=== PATIENT | male | born 1975 | race Asian ===

== ENCOUNTER → 2016-10-17 | Outpatient (CLI) | payer BC ==
[~2016-10-17] MED LIST: LEVO75TA PO; LEVO88TA PO; OPTIRAY 320 IV PRN
[2016-10-17 18:47] LABS: BASO % 0.3 %; BASO ABS # 0.02 K/uL (0-0.2); COMPLETE YES; EOS % 1.1 %; HEMATOCRIT 42.1 % (42-52); IG% 0.2 %; LYMPH % 11.7 %; LYMPH ABS # 0.75 K/uL (1.2-3.4); MEAN CELL VOLUME 89.4 fL (80-100); MEAN CORPUSCULAR HEMOGLOBIN 30.8 pg (25-34); MEAN CORPUSCULAR HGB CONC 34.4 g/dl (32-36); MEAN PLATELET VOLUME 9.6 fL (7.4-10.4); MONO % 3.9 %; NEUT % 82.8 %; PLATELET COUNT 191 K/uL (130-400); RED BLOOD COUNT 4.71 M/uL (4.7-6.1)
[2016-10-17 19:08] LABS: ALKALINE PHOSPHATASE 80 U/L (45-117); ALT/SGPT 24 U/L (12-78); AST/SGOT 20 U/L (15-37); BLOOD UREA NITROGEN 16 mg/dl (7-18); BUN/CREATININE RATIO 16.4 (10-20); CALCIUM 8.9 mg/dl (8.5-10.1); CARBON DIOXIDE 30 mmol/L (21-32); CHLORIDE 104 mmol/L (98-107); CREATININE 0.95 mg/dl (0.60-1.40); GLUCOSE 104 mg/dl (70-99); POTASSIUM 4.2 mmol/L (3.5-5.1); SODIUM 140 mmol/L (136-145)
[2016-10-17 19:10] LABS: ALB/GLOB RATIO 0.9 (0.9-2)
[2016-10-17 19:18] LABS: THYROID STIMULATING HORMONE 0.424 uIu/ml (0.300-4.500)
--- NOTE | 2016-10-17 19:31 | DIAGNOSTIC IMAGING REPORT ---
CHEST CTA for PULMONARY ARTERIES CT DOSE: 289.52 mGycm HISTORY: Cough HEMOPTYSIS TECHNIQUE: Multiaxial CT images of the chest were performed following the intravenous administration of contrast to evaluate the pulmonary arteries. Maximal intensity projection images were also obtained. COMPARISON STUDY: 08/17/2012 FINDINGS: Thoracic aorta is normal in course and caliber. Pulmonary arterial vasculature enhances appropriately. No major filling defect is appreciated. There are findings of bronchiectatic and infiltrative changes involving the left lower lobe. Mucous plugging is present. This is seen to a lesser extent involving the right lower lobe. These findings are moderately progressive compared to the prior exam. The mid to upper lungs are generally clear. Subtle reticular nodular infiltrative process superior segment right lower lobe is present. IMPRESSION: 1. Study is negative for pulmonary embolus. 2. Moderately progressive infiltrative and bronchiectatic changes involving the left and to lesser extent right lower lobe. 3. Interval development of reticular nodular infiltrative changes superior segment right lower lobe. Electronically signed by: Tim Diaz M.D. 10/17/2016 7:29 PM Dictated Date/Time: 10/17/2016 7:24 PM
== END | disposition home or self-care (01) ==
LOC: C.LAB 18:03
PROVIDERS: ATTEND Family Medicine
DX: R04.2 Hemoptysis (principal); R91.8 Other nonspecific abnormal finding of lung field; J47.9 Bronchiectasis, uncomplicated

== ENCOUNTER → 2016-10-21 | Outpatient (CLI) | payer BC ==
[~2016-10-21] MED LIST changes: -OPTIRAY 320 IV PRN
[2016-10-21 16:48] LABS: BASO % 0.6 %; BASO ABS # 0.02 K/uL (0-0.2); COMPLETE YES; EOS % 3.5 %; HEMATOCRIT 42.8 % (42-52); LYMPH % 34.2 %; LYMPH ABS # 1.07 K/uL (1.2-3.4); MEAN CELL VOLUME 87.9 fL (80-100); MEAN CORPUSCULAR HEMOGLOBIN 29.8 pg (25-34); MEAN CORPUSCULAR HGB CONC 33.9 g/dl (32-36); MEAN PLATELET VOLUME 9.6 fL (7.4-10.4); MONO % 5.8 %; NEUT % 55.9 %; PLATELET COUNT 207 K/uL (130-400); RED BLOOD COUNT 4.87 M/uL (4.7-6.1); WHITE BLOOD COUNT 3.13 K/uL (4.8-10.8)
[2016-10-21 16:57] LABS: PARTIAL THROMBOPLASTIN RATIO 1.2; PROTHROMBIN TIME (PATIENT) 10.8 SECONDS (9.0-12.0)
[2016-10-21 17:28] LABS: ALT/SGPT 26 U/L (12-78); BLOOD UREA NITROGEN 14 mg/dl (7-18); BUN/CREATININE RATIO 15.3 (10-20); CALCIUM 8.9 mg/dl (8.5-10.1); CARBON DIOXIDE 31 mmol/L (21-32); CHLORIDE 105 mmol/L (98-107); GLUCOSE 105 mg/dl (70-99); POTASSIUM 3.7 mmol/L (3.5-5.1); SODIUM 141 mmol/L (136-145)
[2016-10-21 17:40] LABS: ALB/GLOB RATIO 0.9 (0.9-2); ALKALINE PHOSPHATASE 85 U/L (45-117); AST/SGOT 22 U/L (15-37); IMMUNOGLOBULN M 79.3 mg/dL (40-230)
[2016-11-07 15:11] LABS: IMMUNOGLOBULIN E TC 24620E 32 KU/L (<115); PNEUMOCOCCAL IGG TYPE 1 0.3 mcg/mL; PNEUMOCOCCAL IGG TYPE 12(12F <0.3 mcg/mL; PNEUMOCOCCAL IGG TYPE 14 <0.3 mcg/mL; PNEUMOCOCCAL IGG TYPE 19(19F 0.8 mcg/mL; PNEUMOCOCCAL IGG TYPE 23(23F 1.7 mcg/mL; PNEUMOCOCCAL IGG TYPE 26 (6B <0.3 mcg/mL; PNEUMOCOCCAL IGG TYPE 3 <0.3 mcg/mL; PNEUMOCOCCAL IGG TYPE 4 <0.3 mcg/mL; PNEUMOCOCCAL IGG TYPE 5 <0.3 mcg/mL; PNEUMOCOCCAL IGG TYPE 51 (7F 1.6 mcg/mL; PNEUMOCOCCAL IGG TYPE 56(18C <0.3 mcg/mL; PNEUMOCOCCAL IGG TYPE 68 (9V <0.3 mcg/mL; PNEUMOCOCCAL IGG TYPE 8 1.2 mcg/mL; PNEUMOCOCCAL IGG TYPE 9 (9N) 0.6 mcg/mL; QUANTIFERON NIL 0.08 IU/ML
== END | disposition home or self-care (01) ==
LOC: C.LAB 15:51
PROVIDERS: ATTEND Internal Medicine Pulmonary Disease
DX: J47.9 Bronchiectasis, uncomplicated (principal); R04.2 Hemoptysis

== ENCOUNTER 2016-11-03 08:18 | Day surgery (SDC) | payer BC ==
[2016-11-03] VITALS (15 sets, daily range): BP systolic 92–107; BP diastolic 56–75; PULSE 48–68; TEMP 36.3–36.8; O2SAT 96–100; Ht 165.1 cm; Wt 59.0 kg
[~2016-11-03] VITALS: Ht 165.1 cm; Wt 59.0 kg
[2016-11-03] MEDS ORDERED: LIDOCAINE HCL 2% LOCAL 50ML VIAL INFIL ONE (08:19)
[2016-11-03] MEDS ORDERED: LEVALBUTEROL 1.25MG/3ML NEB INH ONE (08:19)
[2016-11-03] MEDS ORDERED: FENTANYL CITRATE INJ 50 MCG/1 ML 2 ML VIAL IV ONE ×2 (08:19→11:45)
[2016-11-03] MEDS ORDERED: MIDAZOLAM HCL 5 MG/ML 1 ML VIAL IV ONE ×2 (08:19→11:45)
[2016-11-03] MEDS ORDERED: LIDOCAINE 4% INH SOLN 4 ML BTL ONE (08:19)
[2016-11-03] MEDS ORDERED: LEVO75TA PO (09:24)
[2016-11-03] MEDS ORDERED: LEVO88TA PO (09:24)
--- NOTE | 2016-11-03 09:52 | History & Physical Bridge Note ---
H&P Re-Evaluation Bridge Note: I have examined the patient, reviewed the History & Physical and in the interval since the performance of the History & Physical I have noted the following changes of clinical significance: No changes noted
--- NOTE | 2016-11-03 09:52 | Procedure Note ---
Pre-Mod Sedation Assessment General Date of Moderate Sedation: Nov 03, 2016. Vital Signs: Vital Signs Past 12 Hours Date Time Temp Pulse Resp B/P Pulse Ox O2 Delivery O2 Flow Rate FiO2 11/03/16 09:15 36.4 63 18 105/71 96 Room Air Pre-Sedation Airway Assessment Oral Cavity: WNL Short Thick Neck: No Hx of Sleep Apnea: No Smoking Status: Never Smoker Mallampati Classification: Class I ASA Classification: Class I Procedure Planning Contraindications-for Mod Sed: None Yes Notes The planned sedation has been discussed with the patient and consent obtained. I have identified the patient, determined the appropriateness of sedation and have assessed the patient immediately prior to the procedure. All medicine(s) and interventions are by my order.
[2016-11-03] MEDS ORDERED: NURSING VERBAL MED ORDER ONE (10:45)
[2016-11-03] MEDS ORDERED: SODIUM CHLORIDE 0.9% 1000ML 1,000 ML IV SCH (11:45)
--- NOTE | 2016-11-03 12:42 | Discharge Instructions ---
Discharge Instructions Date of Service Nov 03, 2016. Admission Reason for Admission: Hemoptysis, Abnormal Ct Discharge Discharge Diagnosis / Problem: Hemoptysis Discharge Goals Goal(s): Diagnostic testing Activity Recommendations Activity Limitations: resume your previous activity Lifting Limitations: none . Instructions / Follow-Up Instructions / Follow-Up ACTIVITY RECOMMENDATIONS: * Rest today, resume normal activity tomorrow. * Do not drive today. SPECIAL CARE INSTRUCTIONS: * Call your physician if you experience any chest or shoulder pain, fever, coughing, spitting up blood (more than 2 teaspoons) or excessive shortness of breath. * Remove dressing from IV site (where needle was placed into the vein) after 2 hours. Apply a warm, moist compress to site if irritation occurs. Call physician if site becomes red or painful to touch. * You may eat 4 hours after the completion of your procedure * Resume all usual medications as previously directed FOLLOW UP VISIT: * Keep any scheduled doctor appointments. Current Hospital Diet Patient's current hospital diet: Discharge Diet Recommended Diet: Regular Diet Pending Studies Studies pending at discharge: yes List of pending studies: Bronchoscopy washings Medical Emergencies . Who to Call and When: Medical Emergencies: If at any time you feel your situation is an emergency, please call 911 immediately. . Non-Emergent Contact Non-Emergency issues call your: Primary Care Provider . . "Provider Documentation" section prepared by Doyle Quintanilla PA-C. VTE Core Measure Inpt VTE Proph given/why not?: Treatment not indicated (Same day procedure. )
--- NOTE | 2016-11-03 14:29 | OPERATIVE REPORT ---
DATE OF OPERATION: 11/03/2016 PROCEDURE: Fiberoptic bronchoscopy and bronchoalveolar lavage. INDICATIONS: Chronic bronchiectasis with mucoid impaction/hemoptysis. ANESTHESIA PREOPERATIVELY: None. ANESTHESIA DURING PROCEDURE: 4 mg IV Versed, 50 mcg IV fentanyl, 20 mL 2% Xylocaine spray above and below the cords, 4% viscous Xylocaine intranasally. PROCEDURE NOTE: Fiberoptic bronchoscope was inserted into the right naris with minimal difficulty and passed to the level of the true vocal cords. The cords appeared to approximate normally with phonation without evidence for lesions or paralysis. The scope was then introduced in the trachea and right and left tracheobronchial tree. The trachea was within normal limits. The wilian was sharp. The right main stem bronchus was found to be free of endobronchial lesions. The right upper lobe, the apical posterior and anterior segments, bronchus intermedius, right middle lobe and the medial and lateral segments and all basilar segments of right lower lobe were found to be free of endobronchial lesions. Mucus pitting was prominently displayed throughout the right tracheobronchial tree and a moderate amount of mucopurulent secretion was lavaged from each basilar segment of the right lower lobe with mucoid impaction noted. The left tracheobronchial tree was then explored and no endobronchial lesion was seen. Left upper lobe, the apical-posterior and anterior segments, lingular subdivision with the superior and inferior segments were free of endobronchial lesions. However the left lower lobe with all basilar segments showed copious mucopurulent secretion with impaction of virtually every segmental bronchus and subsegmental bronchus. These areas were copiously lavaged with Normosol and the aspirate sent for appropriate studies. A moderate degree of inflammatory mucosal change was seen with friability, but no active bleeding. The segmental bronchi appeared to be patulous and dilated, consistent with the diagnosis of localized bronchiectasis. No biopsies or brushings were obtained. The procedure was terminated. The patient was given a nebulizer treatment with Xopenex 1.25 mg, then transferred to the medical treatment unit hemodynamically stable with no signs of respiratory compromise. We will await microbiological and cytologic examination of the bronchial washings. I attest to the content of the Intraoperative Record and any orders documented therein. Any exceptio ns are noted below.
[2016-11-07 15:33] LABS: ASPERGILLUS FLAVUS Negative (Negative); ASPERGILLUS FUMIGATUS Negative (Negative); ASPERGILLUS NIGER Negative (Negative); IMMUNOGLOBULIN E TC 24620E 28 KU/L (<115)
[2016-11-23 09:03] LABS: HERPES SIMPLEX CULT SOURCE OTHER-LEFT LOWER LOB; HERPES SIMPLEX VIRUS CULT NOT ISOLATED (NOT ISOLATED)
== END 2016-11-03 13:25 | disposition home or self-care (01) ==
LOC: C.ACU 08:18
PROVIDERS: ATTEND Internal Medicine Pulmonary Disease
DX: J47.9 Bronchiectasis, uncomplicated (principal); J39.8 Other specified diseases of upper respiratory tract; E06.3 Autoimmune thyroiditis; Z88.0 Allergy status to penicillin; Z80.49 Family history of malignant neoplasm of other genital organs

== ENCOUNTER → 2016-12-08 | Outpatient (CLI) | payer BC ==
--- NOTE | 2016-12-08 13:10 | DIAGNOSTIC IMAGING REPORT ---
CT SCAN OF THE PARANASAL SINUSES CLINICAL HISTORY: Acute sinusitis. COMPARISON STUDY: No priors. TECHNIQUE: High-resolution CT scan of the paranasal sinuses is performed. Images are reviewed in the axial, sagittal, and coronal planes. IV contrast was not administered for this examination. CT DOSE: 543.10 mGy.cm FINDINGS: Maxillary antra: Trace dependent mucosal thickening is seen bilaterally. Anterior ethmoid sinuses: Trace mucosal thickening is seen on the right. Clear on the left. Posterior ethmoid sinuses: Trace mucosal thickening is seen on the right. Clear on the left. Sphenoid sinuses: Trace mucosal thickening is seen on the right. Clear on the left. Frontal sinuses: Trace mucosal thickening is seen bilaterally. Ostiomeatal complexes: Minimally narrowed by mucosal thickening but patent bilaterally. A large Madison cell is noted on the right. Frontoethmoidal and sphenoethmoidal recesses: Patent bilaterally. Carotid arteries: The carotid arteries are covered and there are bilateral septal attachments. Ethmoid roofs: The ethmoid roofs are symmetric. Nasal turbinates: There is denise bullosa of the left middle nasal turbinate. Nasal septum: There is mild left lower deviation of the bony nasal septum with a small spur. Optic nerves: Covered. Orbits: The bony orbits are intact. Orbital contents are normal in appearance. Calvarium: The imaged calvarium is normal in appearance Mastoid air cells: Well pneumatized. Brain parenchyma: Partially visualized brain parenchyma is within normal limits. IMPRESSION: Mild paranasal sinus disease as above. There is no CT evidence of acute sinusitis. See discussion. Electronically signed by: Enrico Herrera M.D. 12/08/2016 1:08 PM Dictated Date/Time: 12/08/2016 1:05 PM
== END | disposition home or self-care (01) ==
LOC: C.CTS 12:44
PROVIDERS: ATTEND Internal Medicine Pulmonary Disease
DX: J01.90 Acute sinusitis, unspecified (principal)

== ENCOUNTER → 2017-02-23 | Outpatient (CLI) | payer BC ==
--- NOTE | 2017-02-23 16:00 | DIAGNOSTIC IMAGING REPORT ---
CHEST 2 VIEWS ROUTINE CLINICAL HISTORY: R91.[address] scan, [id number] COMPARISON STUDY: 11/22/2014. CT 10/17/2016 FINDINGS: Unchanging bronchiectatic changes medial aspect left base. Lungs otherwise are clear. Diaphragms are smooth. IMPRESSION: Chronic bronchiectatic changes medial left base. No acute or interval process. The above report was generated using voice recognition software. It may contain grammatical, syntax or spelling errors. Electronically signed by: Tim Diaz M.D. 02/23/2017 3:59 PM Dictated Date/Time: 02/23/2017 3:57 PM
== END | disposition home or self-care (01) ==
LOC: C.RAD1850 15:19
PROVIDERS: ATTEND Internal Medicine Pulmonary Disease
DX: R91.8 Other nonspecific abnormal finding of lung field (principal)

== ENCOUNTER 2017-03-29 07:49 | Day surgery (SDC) | payer BC ==
[2017-03-20 09:39] LABS: BASO % 0.4 %; BASO ABS # 0.02 K/uL (0-0.2); COMPLETE YES; EOS % 2.2 %; HEMATOCRIT 43.2 % (42-52); LYMPH ABS # 1.18 K/uL (1.2-3.4); MEAN CELL VOLUME 90.4 fL (80-100); MEAN CORPUSCULAR HEMOGLOBIN 30.1 pg (25-34); MEAN CORPUSCULAR HGB CONC 33.3 g/dl (32-36); MEAN PLATELET VOLUME 9.6 fL (7.4-10.4); MONO % 6.1 %; NEUT % 67.3 %; PLATELET COUNT 188 K/uL (130-400); RED BLOOD COUNT 4.78 M/uL (4.7-6.1); WHITE BLOOD COUNT 4.92 K/uL (4.8-10.8)
[2017-03-20 09:47] LABS: PARTIAL THROMBOPLASTIN RATIO 1.2; PROTHROMBIN TIME (PATIENT) 10.7 SECONDS (9.0-12.0)
[2017-03-20 09:56] LABS: ALT/SGPT 40 U/L (12-78); AST/SGOT 26 U/L (15-37); BLOOD UREA NITROGEN 14 mg/dl (7-18); BUN/CREATININE RATIO 17.5 (10-20); CALCIUM 8.6 mg/dl (8.5-10.1); CARBON DIOXIDE 29 mmol/L (21-32); CHLORIDE 109 mmol/L (98-107); CREATININE 0.78 mg/dl (0.60-1.40); GLUCOSE 89 mg/dl (70-99); POTASSIUM 4.3 mmol/L (3.5-5.1); SODIUM 141 mmol/L (136-145)
[2017-03-20 10:07] LABS: ALKALINE PHOSPHATASE 86 U/L (45-117); THYROID STIMULATING HORMONE 0.054 uIu/ml (0.300-4.500)
[2017-03-29] VITALS (19 sets, daily range): BP systolic 88–107; BP diastolic 56–69; PULSE 49–61; TEMP 36.3–36.5; O2SAT 94–100; Ht 165.1 cm; Wt 59.0 kg
[~2017-03-29] VITALS: Ht 165.1 cm; Wt 59.0 kg
[2017-03-29] MEDS ORDERED: LIDOCAINE HCL 2% LOCAL 50ML VIAL INFIL ONE (07:50)
[2017-03-29] MEDS ORDERED: MIDAZOLAM HCL 5 MG/ML 1 ML VIAL IV ONE ×2 (07:50→09:45)
[2017-03-29] MEDS ORDERED: FENTANYL CITRATE 100 MCG 2 ML CARP IV ONE (07:50)
--- NOTE | 2017-03-29 08:24 | History and Physical ---
History & Physical Date Mar 29, 2017. Chief Complaint Chronic bronchiectasis with acute flare History of Present Illness The patient is a 41 year old male with complaints of chronic bronchiectasis with acute flare: 1. Bronchiectasis: At this time the patient does not signs of acute infection will continue to monitor him clinically. I do suggest we repeat bronchoscopy but perform transbronchial biopsies for more invasive evaluation of his possible mycosis. The patient has agreed to this and we will initiate set up. 2. 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 Moving forward with bronchoscopy and transbronchial biopsies might help us truly define invasive versus noninvasive Aspergillus colonization versus infection. Radiology Chest x-ray obtained 02/23/2017: Chronic bronchiectatic changes at the medial left base CT thorax 10/17/2016 compared to 08/17/2012 no significant changes O Left greater than right with basilar bronchiectasis some cylindrical O Right upper lobe posterior subsegment bronchiectasis with tree-in-bud appearance O Significant mediastinal lymphadenopathy in the 4R and 7 kamran station Bronchoscopy with BAL 11/03/2016: BAL performed left lower lobe No malignant cells noted Aspergillus fumigatus Syncephalastrum Species Penicillium Species Testing QuantiFERON gold negative Aspergillus Flavus had a body: Negative Aspergillus from glottis antibody negative Aspergillus [place] antibody negative Additional History Hepatic Disease: No Endocrine Disorder: No Kidney Disease: No Hypertension: No Heart Disease: No Bleeding Tendencies: No Infectious Diseases: Yes (ABPA) Allergies Coded Allergies: Shellfish (Verified Allergy, Severe, rash;hives;swelling, 03/29/17) POLLEN (Verified Adverse Reaction, Severe, itchy eys, 03/29/17) Uncoded Allergies: PENICILLIN (Allergy, Severe, hives;itchy, 11/03/16) Home Medications Scheduled Levothyroxine Sodium (Synthroid), 75 MCG PO Q2D Levothyroxine Sodium (Synthroid), 88 MCG PO Q2D Physical Examination Skin: warm/dry, no rash Eyes: normal inspection, EOMI, sclerae normal ENT: normal ENT inspection, pharynx normal Head: normocephalic, atraumatic Neck: supple, no adenopathy, trachea midline Respiratory/Chest: lungs clear, normal breath sounds, no respiratory distress Cardiovascular: regular rate, rhythm, no edema, no murmur Abdomen / GI: normal bowel sounds, non tender Back: normal inspection Extremities: normal inspection, normal range of motion Neurologic/Psych: no motor/sensory deficits, alert, normal reflexes, oriented x 3 ASA Classification: ASA Class II Plan of Treatment Bronchoscopy with bronchial alveolar lavage and transbronchial biopsies
--- NOTE | 2017-03-29 08:52 | Procedure Note ---
Pre-Mod Sedation Assessment General Date of Moderate Sedation: Mar 29, 2017. Vital Signs: Vital Signs Past 12 Hours Date Time Temp Pulse Resp B/P (MAP) Pulse Ox O2 Delivery O2 Flow Rate FiO2 03/29/17 08:46 36.5 55 18 88/56 98 Room Air 03/29/17 08:12 36.5 55 18 88/56 (67) 98 Room Air Review Cardiovascular: regular rate, rhythm, no edema, no gallop, no JVD, no murmur Abdomen: normal bowel sounds, non tender, soft, no organomegaly, no pulsatile mass Lungs: lungs clear, normal breath sounds, no respiratory distress Airway Class: II Pre-Sedation Airway Assessment Oral Cavity: WNL Able to Visualize Vocal Cords: Yes Short Thick Neck: No Hx of Sleep Apnea: No Smoking Status: Never Smoker Mallampati Classification: Class II ASA Classification: Class II Procedure Planning Contraindications-for Mod Sed: None Yes Notes The planned sedation has been discussed with the patient and consent obtained. I have identified the patient, determined the appropriateness of sedation and have assessed the patient immediately prior to the procedure. All medicine(s) and interventions are by my order.
[2017-03-29] MEDS ORDERED: NURSING VERBAL MED ORDER ONE ×2 (09:00→09:45)
[2017-03-29] MEDS ORDERED: DEXTROSE 5% 1000ML 1,000 ML IV SCH (09:15)
--- NOTE | 2017-03-29 09:41 | Procedure Note ---
Post-Moderate Sedation Plan General Date of Moderate Sedation Mar 29, 2017. Vital Signs: Vital Signs Past 12 Hours Date Time Temp Pulse Resp B/P (MAP) Pulse Ox O2 Delivery O2 Flow Rate FiO2 03/29/17 08:50 51 18 107/69 94 Room Air 03/29/17 08:46 36.5 55 18 88/56 98 Room Air 03/29/17 08:12 36.5 55 18 88/56 (67) 98 Room Air Review - Discharge Plan Post Moderate Sedation Plan: On clinical assessment, the patient appears to have tolerated the conscious sedation without complications. Patient is recovering as anticipated. Patient will continue to be monitored by nursing and may be discharged when conscious sedation discharge criteria are met.
--- NOTE | 2017-03-29 09:41 | Bronchoscopy Procedure Note ---
Bronchoscopy Procedure Note Procedure: Bronchoscopy, conscious sedation, transbronchial biopsy, fluoroscopy Consent: Obtained through the patient placed into the chart Pre-Procedural diagnosis: Chronic bronchiectasis Post-procedural diagnosis: Chronic bronchitis Start time: 909 End time: 928 Total time: 19 minutes Analgesia: 2% liquid lidocaine: Via nebulizer 4% gel lidocaine: Via right naris 2% liquid lidocaine: Via bronchoscopy Sedation: Versed IV: 3 mg Fentanyl IV: 50 g Procedure: The [employer] video bronchoscope was used for this procedure and passed down through the right naris Right naris/posterior naris/posterior oropharynx: Anatomically within normal limits Glottis: Anatomically within normal limits Vocal cords: Proper abduction and abduction, anatomically within normal limits Subglottis/trachea/Lexy: Anatomically within normal limits, diffuse mucous plugs easily cleared Right bronchial tree: Right mainstem bronchus: Anatomically within normal limits Right upper lobe: Anatomically within normal limits Bronchus intermedius: Anatomically within normal limits Right middle lobe: Anatomically within normal limits Right lower lobe: Anatomically within normal limits Findings: Diffuse mucous plugs throughout the right bronchial tree easily cleared Left bronchial tree: Left mainstem bronchus: Anatomically within normal limits Left upper lobe: Anatomically within normal limits Lingula: Anatomically within normal limits Left lower lobe: Anatomically within normal limits Findings: Diffuse mucous plugs throughout the left bronchial tree easily cleared greatest in the left lower lobe gravity dependent regions Bronchial alveolar lavage: Left lower lobe EBL: None Tbbx: 7 performed of the left lower lobe Complications: None Follow-up: In the [facility]
[2017-03-29] MEDS ORDERED: FENTANYL CITRATE INJ 50 MCG/1 ML 2 ML VIAL IV ONE ×2 (09:45)
--- NOTE | 2017-03-29 11:36 | Discharge Instructions ---
Discharge Instructions Date of Service Mar 29, 2017. Admission Reason for Admission: Abn Ct Scan E03.9, J47.9, R04.2, B44.81, R97.8 Discharge Discharge Diagnosis / Problem: Chronic bronchiectasis Discharge Goals Goal(s): Improve function, Diagnostic testing Activity Recommendations Activity Limitations: resume your previous activity . Instructions / Follow-Up Instructions / Follow-Up Follow-up in the [facility] at next scheduled visit. Current Hospital Diet Patient's current hospital diet: Discharge Diet Recommended Diet: Regular Diet Procedures Procedures Performed: Bronchoscopy, conscious sedation, bronchial lavage of the left lower lobe and transbronchial biopsies of the left lower lobe. Pending Studies Studies pending at discharge: no Medical Emergencies . Who to Call and When: Medical Emergencies: If at any time you feel your situation is an emergency, please call 911 immediately. . Non-Emergent Contact Non-Emergency issues call your: [employer] . . "Provider Documentation" section prepared by Jose Peters. . VTE Core Measure Inpt VTE Proph given/why not?: Treatment not indicated
[2017-04-22 13:15] LABS: HERPES SIMPLEX CULT SOURCE RESPIRATORY-LLL BAL; HERPES SIMPLEX VIRUS CULT NOT ISOLATED (NOT ISOLATED)
== END 2017-03-29 12:20 | disposition home or self-care (01) ==
LOC: C.ACU 07:49
PROVIDERS: ATTEND Internal Medicine Critical Care Medicine
DX: J42 Unspecified chronic bronchitis (principal); Z79.899 Other long term (current) drug therapy

== ENCOUNTER → 2017-06-19 | Outpatient (CLI) | payer BC ==
[2017-06-19 09:55] LABS: THYROID STIMULATING HORMONE 0.368 uIu/ml (0.300-4.500)
== END | disposition home or self-care (01) ==
LOC: C.LAB 07:42
PROVIDERS: ATTEND Internal Medicine Endocrinology, Diabetes & Metabolism
DX: E06.3 Autoimmune thyroiditis (principal)

== ENCOUNTER → 2017-08-26 | Outpatient (CLI) | payer BC ==
[2017-08-26 10:04] LABS: ALBUMIN 3.7 gm/dl (3.4-5.0); ALT/SGPT 27 U/L (12-78); BLOOD UREA NITROGEN 14 mg/dl (7-18); CALCIUM 8.8 mg/dl (8.5-10.1); CARBON DIOXIDE 28 mmol/L (21-32); CHOLESTEROL 155 mg/dl (0-200); CREATININE 0.82 mg/dl (0.60-1.40); GLUCOSE 79 mg/dl (70-99); POTASSIUM 3.7 mmol/L (3.5-5.1); SODIUM 139 mmol/L (136-145)
[2017-08-26 10:07] LABS: ALKALINE PHOSPHATASE 68 U/L (45-117); AST/SGOT 17 U/L (15-37); LDL CHOLESTEROL CALCULATED 90 mg/dl; TOTAL PROTEIN 7.9 gm/dl (6.4-8.2)
== END | disposition home or self-care (01) ==
LOC: C.LAB 08:48
PROVIDERS: ATTEND Family Medicine
DX: Z13.220 Encounter for screening for lipoid disorders (principal); Z13.228 Encounter for screening for other metabolic disorders

== ENCOUNTER → 2017-11-08 | Outpatient (CLI) | payer BC ==
--- NOTE | 2017-11-08 14:32 | DIAGNOSTIC IMAGING REPORT ---
CHEST 2 VIEWS ROUTINE HISTORY: 42 years-old Male BRONCHIECTASIS bronchiectasis. COMPARISON: Chest radiographs 02/23/2017, chest radiograph 10/17/2016 TECHNIQUE: PA and lateral views of the chest FINDINGS: Cardiomediastinal and hilar silhouettes are within normal limits. Bibasilar bronchiectasis is redemonstrated, best seen to level of the medial right lung base. Bronchiectasis with reticular nodular opacities are seen within the right midlung. No pneumothorax, pleural effusion or lobar airspace consolidation. Bones of the chest appear grossly intact. IMPRESSION: Bibasilar bronchiectasis with bronchiectasis and reticular nodular opacities of the right midlung, possibly reflecting associated infectious bronchiolitis as seen on comparison chest CT. The above report was generated using voice recognition software. It may contain grammatical, syntax or spelling errors. Electronically signed by: Waylon Graham M.D. 11/08/2017 2:30 PM Dictated Date/Time: 11/08/2017 2:25 PM
== END | disposition home or self-care (01) ==
LOC: C.RAD1850 14:17
PROVIDERS: ATTEND Internal Medicine Pulmonary Disease
DX: J47.9 Bronchiectasis, uncomplicated (principal)

== ENCOUNTER → 2018-02-24 | Outpatient (CLI) | payer BC | END | disposition home or self-care (01) | LOC: C.LAB 09:50 | PROVIDERS: ATTEND Internal Medicine Endocrinology, Diabetes & Metabolism | DX: E03.9 Hypothyroidism, unspecified (principal) ==

== ENCOUNTER → 2018-03-06 | Outpatient (CLI) | payer BC ==
--- NOTE | 2018-03-06 16:47 | DIAGNOSTIC IMAGING REPORT ---
SOFT TISS HEAD/NECK-THYROID HISTORY: Thyroiditis HYPOTHYROIDISM,SUNITA'S COMPARISON: 06/17/2015 FINDINGS: Right lobe: Maximum linear dimension 6.2 cm. Diffuse heterogeneity with increased vascular flow. Left lobe: Diffuse heterogeneity with maximum linear dimension of 4.9 cm. Increase in vascular flow. Isthmus: No nodules. IMPRESSION: Diffuse heterogeneity of both thyroid lobes consistent with thyroiditis. Increased vascular flow. This study is unchanged from the prior exam. Current study shows no significant surrounding adenopathy The above report was generated using voice recognition software. It may contain grammatical, syntax or spelling errors. Electronically signed by: Tim Diaz M.D. 03/06/2018 4:46 PM Dictated Date/Time: 03/06/2018 4:44 PM
== END | disposition home or self-care (01) ==
LOC: C.ULTR 15:45
PROVIDERS: ATTEND Internal Medicine Endocrinology, Diabetes & Metabolism
DX: E03.9 Hypothyroidism, unspecified (principal); E06.3 Autoimmune thyroiditis

== ENCOUNTER → 2018-03-14 | Outpatient (CLI) | payer BC ==
--- NOTE | 2018-03-14 12:16 | DIAGNOSTIC IMAGING REPORT ---
CHEST 2 VIEWS ROUTINE HISTORY: 42 years-old Male J47.9 [id number] COMPARISON: Chest radiographs 11/08/2017, CTA chest 10/17/2016 TECHNIQUE: PA and lateral views of the chest FINDINGS: Cardiomediastinal and hilar silhouettes are within normal limits. No pneumothorax, pleural effusion or overt pulmonary edema. Bibasilar bronchiectasis redemonstrated. Subsegmental retrocardiac left basilar opacities are unchanged. Ill-defined reticulonodular opacities about the right midlung are also noted. Bones of the chest appear grossly intact. IMPRESSION: 1. No acute process. 2. Unchanged subsegmental reticular nodular opacities about the right midlung with subsegmental consolidation of the left lower lobe. The above report was generated using voice recognition software. It may contain grammatical, syntax or spelling errors. Electronically signed by: Waylon Graham M.D. 03/14/2018 12:15 PM Dictated Date/Time: 03/14/2018 12:13 PM
== END | disposition home or self-care (01) ==
LOC: C.RAD1850 12:01
PROVIDERS: ATTEND Internal Medicine Pulmonary Disease
DX: J47.9 Bronchiectasis, uncomplicated (principal)